=== PATIENT | male | born 1985 | race Caucasian/White ===

== ENCOUNTER 2020-12-23 12:14 | Emergency (ER) | payer SELFPAY ==
[2020-12-23 12:25] VITALS: BP 140/88
--- NOTE | 2020-12-23 12:28 | ED Physician Documentation ---
History of Present Illness - Stated complaint Stated Complaint: COVID Test - Chief complaint Chief Complaint: Heent - History obtained from History obtained from: Patient - History of Present Illness Timing: Today Pain level max: 0 Pain level now: 0 - Additonal information Additional information: Patient is a 35-year-old male who states he was exposed to someone with Covid a few days ago and now has a scratchy throat. His work is requesting a Covid test before he can return to work. No fevers. Mild, dry cough, chronic and unchanged from his normal smoker's cough. He has not had his Covid vaccination. Review of Systems Ten Systems: 10 systems reviewed and negative Constitutional: denies: Fever, Chills Throat: denies: Sore throat Cardiac: denies: Chest pain / pressure, Palpitations Respiratory: denies: Dyspnea, Wheezing GI: denies: Vomiting, Diarrhea Musculoskeletal: denies: Neck pain, Back pain Neurologic: denies: Headache PD PAST MEDICAL HISTORY - Past Medical History Past Medical History: No - Allergies Allergies/Adverse Reactions: Allergies Allergy/AdvReac Type Severity Reaction Status Date / Time No Known Drug Allergies Allergy Verified 12/23/20 12:19 - Living Situation Living Arrangement: reports: At home - Social History Does the pt smoke?: Yes Smoking Status: Current every day smoker - Family History Family history: reports: Non contributory PD ED PE NORMAL - Vitals Vital signs reviewed: Yes - General General: Alert and oriented X 3, No acute distress - HEENT HEENT: PERRL, Pharynx benign - Neck Neck: Supple, no meningeal sign - Cardiac Cardiac: RRR, Strong equal pulses - Respiratory Respiratory: No respiratory distress, Clear bilaterally - Abdomen Abdomen: Soft, Non tender, Non distended - Derm Derm: Warm and dry, No rash - Neuro Neuro: Alert and oriented X 3 - Psych Psych: Normal mood, Normal affect Results - Vitals Vitals: Vital Signs - 24 hr 12/23/20 12:20 Temperature 36.8 C Heart Rate 78 Respiratory 16 Rate Blood Pressure 140/88 H O2 Saturation 96 PD MEDICAL DECISION MAKING - ED course Complexity details: considered differential, d/w patient ED course: Covid test performed. Patient is relatively asymptomatic here. No hypoxia. No shortness of breath. No respiratory distress. Patient counseled regarding signs and symptoms for which I believe and urgent re-evaluation would be necessary. Patient with good understanding of and agreement to plan and is comfortable going home at this time This document was made in part using voice recognition software. While efforts are made to proofread this document, sound alike and grammatical errors may occur. Departure - Departure Disposition: 01 Home, Self Care Clinical Impression: Viral URI Condition: Good Instructions: COVID-19 [facility], COVID-19 [facility] Department Statement Follow-Up: Your,doctor in 1 week [Other] Comments: You have a Covid test pending. You need to self quarantine until the result is done and negative. Do not leave your house. Do not get near anybody. The results should be done in 48 to 72 hours. We will call with a positive result, the fastest way to get a negative result for confirmation though is to go to the hospital website at [email or web address], click on the my [facility] tab and sign up for the patient portal. If any friends or family get sick and would like to have a Covid test done, but do not have signs or symptoms that would necessitate being hospitalized, we encourage testing through our coronavirus swabbing station, call [phone] to schedule an appointment.
== END 2020-12-23 12:45 | disposition home or self-care (01) ==
LOC: ED 12:14
DX: Z20.822 Contact with and (suspected) exposure to COVID-19 (principal); J06.9 Acute upper respiratory infection, unspecified; F17.200 Nicotine dependence, unspecified, uncomplicated
CPT/HCPCS: 99282; 99283

== ENCOUNTER 2025-03-08 10:17 | Observation (INO) ==
[2025-03-08 11:16] LABS: HCT - HEMATOCRIT 48.2 % (42.0-52.0); HGB - HEMOGLOBIN 16.0 g/dL (14.0-18.0); MEAN PLATELET VOLUME 10.0 fL (7.4-11.4); NRBC ABSOLUTE COUNT (AUTO) 0.00 x10^3/uL; NUCLEATED RED BLOOD CELLS AUTO 0.0 /100WBC; PLT - PLATELET COUNT 319 10^3/uL (130-450); RED CELL DISTRIBUTION WIDTH 14.2 % (12.0-15.0)
--- NOTE | 2025-03-08 11:18 | ED Physician Documentation ---
History of Present Illness Stated complaint Stated Complaint: ABD PX,N/V Chief complaint Chief Complaint: Abd Pain History obtained from History obtained from: Patient History of Present Illness Timing: Prior to arrival Additonal information Additional information: Patient 40-year-old male presenting to the emergency department generalized abdominal pain nausea vomiting diarrhea that started on Wednesday he reports severe abdominal pain decreased eating and drinking secondary to pain. He is a regular alcohol drinker but notes he has been able to drink the last few days and denies any withdrawal symptoms. He notes recent move from [place] to [place] within the last week. He denies any recent antibiotic use. He denies any black stools but does report occasional streaks of blood in his stools and emesis. He denies any chest pain or shortness of breath. Abdomen does not feel bloated the patient to patient no history of abdominal surgeries. He has not take any medications regularly at home. No recent alcohol use Meds/Allgy Home Medications Ambulatory Orders Medication Instructions Recorded Confirmed No Known Home Medications 03/08/2508/01 Allergies Allergies Allergy/AdvReac Type Severity Reaction Status Date / Time No Known Drug Allergies Allergy Verified 03/08/25 10:39 PFSH Active Problems All Active Problems (Updated 03/08/25 @ 13:30 by Deedee Bettencourt PA-C) Acute duodenitis (Acute) Acute pancreatitis (Acute) Abdominal pain (Acute) Vomiting (Acute) Medical History Medical History (Updated 03/08/25 @ 13:30 by Deedee Bettencourt PA-C) No pertinent past medical history Social History Social History Living arrangement: At home Do you feel safe in your home environment?: Yes History of physical, verbal, emotional, or financial abuse?: No POLST Patient has POLST: No Exam Exam Vital Signs: Vital Signs x48h Temp Pulse Resp BP Pulse Ox 03/08/25 12:40 60 17 154/87 H 99 03/08/25 11:41 52 L 18 100 03/08/25 11:38 63 19 155/96 H 94 03/08/25 10:39 36.5 C 56 L 18 118/61 99 Constitutional normal general appearance HENMT normocephalic and head/scalp atraumatic Eyes PERRL, EOMs intact bilaterally and conjunctivae normal Neck/C-Spine visual inspection normal Lymph no lymphadenopathy noted Respiratory breath sounds equal bilaterally, normal respiratory effort and clear to auscultation bilaterally Cardiovascular normal heart rate noted, regular rhythm noted and no gallop Gastrointestinal Generalized abdominal tenderness but does appear more present in the epigastric region he has generalized guarding on examination but negative Rovsing sign and Huston sign. Active bowel sounds appreciated. Skin skin color normal Results Vitals Vitals: Vital Signs - 24 hr 03/08/25 10:39 03/08/25 11:33 03/08/25 11:38 Temperature 36.5 C Temperature Source Oral Pulse Rate 56 L 63 Respiratory Rate 18 19 Blood Pressure 118/61 155/96 H O2 Saturation 99 94 O2 Source Room air Room air Pain Intensity 10 9 9 03/08/25 11:41 03/08/25 12:40 03/08/25 12:44 Temperature Temperature Source Pulse Rate 52 L 60 Respiratory Rate 18 17 Blood Pressure 154/87 H O2 Saturation 100 99 O2 Source Room air Room air Pain Intensity 8 4 6 03/08/25 12:49 03/08/25 13:38 03/08/25 13:38 Temperature Temperature Source Pulse Rate Respiratory Rate Blood Pressure O2 Saturation O2 Source Pain Intensity 9 8 8 Oxygen O2 Source Room air Labs Labs: Laboratory Tests 03/08/25 11:03 WBC 10.8 RBC 5.03 Hgb 16.0 Hct 48.2 MCV 95.8 H MCH 31.8 H MCHC 33.2 RDW 14.2 Plt Count 319 MPV 10.0 Neut # (Auto) 9.1 H Lymph # (Auto) 0.9 L Nye # (Auto) 0.6 Eos # (Auto) 0.0 Baso # (Auto) 0.1 Absolute Nucleated RBC 0.00 Nucleated RBC % 0.0 Sodium 136 Potassium 4.4 Chloride 99 L Carbon Dioxide 31 Anion Gap 6.0 BUN 6 Creatinine 0.7 Estimated GFR (MDRD) 126 Glucose 131 H Calcium 9.7 Total Bilirubin 1.1 H AST 86 H ALT 35 Alkaline Phosphatase 73 Total Protein 8.1 Albumin 4.6 Globulin 3.5 Albumin/Globulin Ratio 1.3 Triglycerides 103 Lipase 5359 H PD Medical Decision Making ED course Complexity details: reviewed old records and reviewed results ED course: Patient is a 40-year-old male presenting with abdominal pain nausea vomiting diarrhea symptoms have been going on since Wednesday. He notes symptoms came on suddenly. No fevers no no history of abdominal surgeries he describes pain is all over but on initial physical exam tender in epigastric region and CVA tenderness on exam vital stable here in the ED Labs here in the emergency department show no leukocytosis hemoglobin is stable CMP unremarkable but there is slight elevation in AST at 86 and ALT of [address] abdomen pelvis: Abnormal wall thickening can be seen involving the duodenum, with significant surrounding inflammatory change and mild free fluid. Differential diagnosis includes duodenitis.No free air is seen. No abscess collection is seen.No significant inflammatory change can be seen involving the pancreas.Multiple hyperdense nodules are seen involving the kidneys. These may be related to hemorrhagic cysts. However, please consider a follow-up renal ultrasound for further evaluation. Pulmonary nodules can be seen at the lung bases, measuring up to 7 mm. * Please consider a follow-up dedicated chest CT for further evaluation. Patient's pain under control with morphine or Dilaudid dosing here in the ED. He continues to hold his stomach and laying in bed with pain he does not want a p.o. challenge. CT scan was more concerning for duodenitis and I did give him a dose of pantoprazole but had no change in his pain. He has no persistent vomiting but does report some nausea. His vitals remained stable here in the ED I reviewed with patient concerning findings for possible pancreatitis given upper abdominal pain nausea vomiting and alcohol use. He would like to stay overnight as his pain is not controlled and he does not feel well enough to go home or to follow a clear liquid diet at home as he feels he cannot eat or drink at this time. I reached out to [facility] physician health education assistant hospitalist who accepts patient at this time. We are currently pending urine analysis for concerns for hemorrhagic cysts on ct scan, but patient is not aware of any urinary changes or blood in his urine. However he did appear to have some CVA tenderness on initial physical exam. Patient agreeable to admission at this time Discharge Plan Discharge Patient Disposition: 66 [facility] DC/Xfer Condition: Good Clinical Impression: Vomiting, Abdominal pain, Acute pancreatitis, Acute duodenitis Prescriptions: No Action No Known Home Medications Print Language: Maldivian
[2025-03-08] MEDS: SODIUM CHLORIDE 0.9% 1,000 ML IV STA (11:20)
[2025-03-08] MEDS: ONDANSETRON 4 MG/2 ML VIAL IVP STA (11:32)
[2025-03-08] MEDS: MORPHINE 2 MG/ML CARPUJECT IVP STA (11:33)
[2025-03-08 11:35] LABS: ALT ALANINE AMINOTRANSFERASE 35.0 IU/L (10-60); AST ASPARTATE AMINOTRANSFERASE 86.0 IU/L (10-42); BUN - BLOOD UREA NITROGEN 6.0 mg/dL (6-20); CARBON DIOXIDE - CO2 31.0 mmol/L (21-32); CREATININE 0.7 mg/dL (0.6-1.3); GFR - MDRD 126.0 (>89)
--- NOTE | 2025-03-08 12:33 | CT Report ---
PROCEDURE: CT Abdomen/Pelvis W INDICATIONS: epigastric pain CONTRAST: 100ml omni 300 TECHNIQUE: After the administration of intravenous contrast, a CT scan of the abdomen and pelvis was performed. Images were recorded and evaluated at appropriate window settings. Reformats: coronal and sagittal. For radiation dose reduction, the following was used: automated exposure control, adjustment of mA and/or kV according to patient size. COMPARISON: None. FINDINGS: Image quality: Diagnostic. Lower chest: Pulmonary nodules can be seen in the lung bases, measuring up to 7 mm on the right on series 8 image 69 and measuring 5 mm on the left on series 8 image 48. Liver: No solid mass. Diffuse fatty liver infiltration can be seen. Gallbladder: Removed. Biliary tree: No intrahepatic or extrahepatic dilation, accounting for age. Spleen: No splenomegaly. Pancreas: No pancreatic ductal dilation. No significant surrounding inflammatory change can be seen. Adrenals: No adrenal nodule. Kidneys and ureters: No hydronephrosis. Along the posterior aspect of the left kidney, there is an exophytic nodule seen that measures 75 Konsyl units and measures 9 mm. At the superior pole of the left kidney, there is an additional nodule seen that measures 13 mm and 85 Hounsfield units. Differential diagnosis includes an accessory splenule. Along the medial aspect of the left kidney, there is an additional hyperdense nodule measuring 62 Hounsfield units and 13 mm. Additional smaller hyperdense nodules can be seen involving both kidneys. Stomach, bowel and peritoneum: Abnormal wall thickening can be seen in the duodenum, with significant surrounding inflammatory change, with mild free fluid. No free air is seen. No adjacent abscess collection is seen. The stomach demonstrates no significant abnormality. No dilated loops of small bowel are seen. The colon is relatively decompressed. Lymph nodes: No central or retroperitoneal adenopathy. Vessels: No infrarenal aortic aneurysm. Patent portal vein. PELVIS Reproductive organs: Unremarkable. Bladder: No abnormal wall thickening. Pelvic lymph nodes: No pelvic adenopathy by size criteria. Bones: No aggressive osseous abnormality. Other: Bilateral fat-containing inguinal hernias are seen. IMPRESSION: Abnormal wall thickening can be seen involving the duodenum, with significant surrounding inflammatory change and mild free fluid. Differential diagnosis includes duodenitis. No free air is seen. No abscess collection is seen. No significant inflammatory change can be seen involving the pancreas. Multiple hyperdense nodules are seen involving the kidneys. These may be related to hemorrhagic cysts. However, please consider a follow-up renal ultrasound for further evaluation. Pulmonary nodules can be seen at the lung bases, measuring up to 7 mm. * Please consider a follow-up dedicated chest CT for further evaluation. Reviewed by: Chris Houston MD on 03/08/2025 11:29 AM PREETI Approved by: Chris Houston MD on 03/08/2025 11:29 AM KYMARCELA Station ID: [id number]
[2025-03-08] MEDS: HYDROmorphone 0.5 MG/0.5 ML SYRINGE IVP STA ×2 (12:49→13:38)
[2025-03-08] MEDS: PANTOPRAZOLE 40 MG VIAL IVP STA (12:51)
[2025-03-08 13:52] LABS: GLUCOSE, URINE (UA) NEGATIVE (NEGATIVE); KETONES,URINE (UA) 40 mg/dL (NEGATIVE); OCCULT BLOOD,URINE NEGATIVE (NEGATIVE)
[2025-03-08] MEDS ORDERED: SODIUM CHLORIDE FLUSH 0.9% 10 ML SYRINGE IVP PRN (14:41)
--- NOTE | 2025-03-08 14:46 | HISTORY & PHYSICAL EXAMINATION ---
Chief Complaint Chief Complaint Chief Complaint: abdominal pain History of Present Illness Admitted From Admitted From:: home History Obtained From Records Reviewed: none available History obtained from: Patient History of Present Illness HPI Comment/Other: 40M with history of alcohol dependence, s/p cholecystectomy presents to the ED with abdominal pain, nausea and vomiting for 4 days. he drinks 2-3 beers daily. has been drinking since the age of 6, went to rehab for alcohol and was abstinent from [id number]. Denies any history of pancreatitis. has had severe epigastric and generalized abdominal pain wth n/v for 4 days. cannot eat. Tried to eat yesterday, a bulgarian dog and clam chowder- vomited and had worse pain. admits to "cold chills" for 4-5 hours this AM. last drink was yesterday, drinks 2-3 beers a day. has not had issues with alcohol withdrawal since he stopped drinking hard alcohol years ago. States stools have been normal for him, loose. has occasional BRBPR, none lately, and loose stools since cholecystectomy >20 years ago. CODE STATUS: Full code. Surrogate medical decision maker: sister Danyelle Ash. Social history: patient normally works as a cook. Recently moved back to the [place] from [place]. He is between jobs now and basically homeless has been staying with friends. Smokes he says less than a pack per day does not use marijuana or other drugs. Drinks 2-3 beers a day. Started drinking at the age of 6. His father was an alcoholic who of cirrhosis and throat cancer. As a child he would sneak sips of beer from his fathers open beers. Meds/Allgy Home Medications Ambulatory Orders Medication Instructions Recorded Confirmed No Known Home Medications 03/08/2508/01 Allergies Allergies Allergy/AdvReac Type Severity Reaction Status Date / Time No Known Drug Allergies Allergy Verified 03/08/25 10:39 PFSH Active Problems All Active Problems (Updated 03/08/25 @ 15:49 by MIKEY Brennan) Encounter for screening involving social determinants of health (SDoH) (Acute) Alcohol abuse (Acute) Acute duodenitis (Acute) Acute pancreatitis (Acute) Abdominal pain (Acute) Vomiting (Acute) Medical History Medical History (Updated 03/08/25 @ 15:49 by MIKEY Brennan) No pertinent past medical history Surgical History Surgical History (Updated 03/08/25 @ 15:16 by MIKEY Brennan) Status post cholecystectomy Social History Social History (Updated 03/08/25 @ 15:19 by MIKEY Brennan) Smoking Status: Current every day smoker Do you vape?: No Living arrangement: Homeless Living Condition: Alone Support Person: No Living Situation Details: homeless currently, staying with friends Has a Durable Power of Operating System Programmer for Health Care?: No Do you feel safe in your home environment?: Yes History of physical, verbal, emotional, or financial abuse?: No ETOH Use: Beer Frequency: Daily Number of drinks/day: 3 ETOH - Additional Notes: abstinent [id number] Substance Use: denies use POLST Patient has POLST: No Review of Systems Status of ROS: See HPI Constitutional Reports: Diaphoresis Cardiovascular Denies: palpitations, edema or shortness of breath with exertion Respiratory Denies: Shortness of breath Gastrointestinal Reports: Abdominal pain, Abdominal distention, Nausea, Vomiting, Poor appetite and Blood in stool (not currently); Denies: Melena Musculoskeletal Reports: Back pain (chronic) Integumentary/Breast Reports: Other (chronic erythema of facial skin without rash. ) Prior Level of Functionality: meets own needs, struggling with homelessness. Exam Exam Vital Signs: Vital Signs x48h Temp Pulse Pulse Resp BP BP Pulse Ox 03/08/25 14:46 36.7 C 52 L 18 143/93 H 98 03/08/25 14:20 57 L 17 114/83 100 03/08/25 12:40 60 17 154/87 H 99 03/08/25 11:41 52 L 18 100 03/08/25 11:38 63 19 155/96 H 94 03/08/25 10:39 36.5 C 56 L 18 118/61 99 Constitutional normal general appearance and no apparent distress HENMT normocephalic Eyes conjunctivae normal and no scleral icterus Neck/C-Spine visual inspection normal and trachea midline Lymph no lymphadenopathy noted Chest inspection of chest normal and palpation of chest normal Respiratory breath sounds equal bilaterally, normal respiratory effort and clear to auscultation bilaterally Cardiovascular normal heart rate noted Gastrointestinal abdomen normal to inspection, no ascites and no hernia diffuse ttp, worse at epigastrium. Genitourinary no CVA tenderness Back/Pelvis spine normal to inspection Extremities normal to inspection Neurology land inspector II-XII intact Psychiatry mental status grossly normal, oriented x3, thought process normal, cooperative, affect normal and memory normal Skin generalized erythema of facial skin. Conclusion/Plan Problem List (1) Acute pancreatitis: Plan: 3 day history of abdominal pain and inability to tolerate po intake. history of problematic alcohol consumption, family history of addiction (father was an alcoholic and mother is a methamphetamine addict). he has elevated lipase, no inflammatory changes seen at the pancreas on imaging. He has tenderness at the epigastrium. The etiology of his pancreatitis is likely alcohol. He does appear to consume a high fat diet. I have ordered a lipid panel to check triglycerides in the AM. likely not biliary pancreatitis, as he is s/p cholecystectomy. he has an Etoh level at the time of admit of <10 I have placed him on a clear liquid diet and given him supplemental IVF. I will treat his pain with po and IV pain medications. indicators for discharge will be pain that is lessening and ability to tolerate a diet. Discussed with Deedee Bettencourt PA-C in the emergency department decision was made to admit this patient for acute pancreatitis, likely alcoholic due to his inability to tolerate a diet and uncontrolled pain. I will admit him to observation status. (2) Acute duodenitis: Plan: and inflammation on his CT, the inflammation is read as periduodenal, with a mild amount of free fluid, no air, no abscess. he has not been having melena. I will watch his hemoglobin, have asked RN to test for occult blood at stools, and have presribed a PPI BID. I expect his hemoglobin to drop slightly, as he likely presents in a state of dehydration- he has ketonuria. Should he begin to have melena or significant drop in Hgb, would consider GS consult for consideration of endoscopy. (3) Alcohol abuse: Plan: denies withdrawal recently- did experience in the distant past. last drink was yesterday. he does not appear tremulous or agitated now. I will continue to observe. I suggested to the patient that he likely needs to stop alcohol consumption. He has an almost lifelong history of alcohol use, and addiction does run in his family. has had a brief period of sobriety several years ago. Will engage social work for discussion of alcohol cessation (4) Encounter for screening involving social determinants of health (SDoH): Plan: This patient is experiencing homelessness. he came here from [place] because he usually can establish himself easily here in this community, and things were not going well for him where he was living. Social work consult for resources. Plan I have spent 80 minutes in the care of this patient today. This includes time [id number], review and ordering of diagnostic imaging and laboratory studies and consultation with other providers. Monitoring the patient's signs symptoms, evaluation of medication effectiveness and patient's response to treatment. Lab Results Lab results reviewed: Yes 03/08/25 11:03 03/08/25 11:03 Diagnostic Imaging Results Diagnostic Imaging Results: positive Final report reviewed Diagnostic Imaging Results Comments: Images reviewed Core Measures Anticipated LOS I expect patient to be DC'd or transferred within 96 hours.: Yes DVT/VTE - Prophylaxis VTE/DVT Device ordered at admit?: Yes VTE/DVT Prophylaxis med ordered at admit?: Yes
--- NOTE | 2025-03-08 15:17 | PHARMACY PROGRESS NOTE ---
Best Possible Medication History Admit Date and Time: 03/08/25 1418 Home Medications Medication Instructions Recorded Confirmed Type No Known Home Medications 03/08/2508/01 History Processed by: Pharmacy Medications reviewed in ED?: No Medication History completed: Yes Patient Interview: Completed Secondary Source(s): Insurance records [facility] Statement: As the person ultimately responsible for medication therapy, providers are able to order a medication from an existing home medication list in [facility] via the "Reconcile Routine" prior to Confirmation of that medication by technology support analyst. Such practice is discouraged except when the physician, in their clinical judgment, deems that a medical need exists for a medication without regard to previous use.
[2025-03-08] MEDS: NICOTINE 21 MG PATCH TOP SCH (16:27)
[2025-03-08] MEDS: LACTATED RINGERS 1,000 ML IV SCH (16:28)
[2025-03-08] MEDS: HYDROmorphone 0.5 MG/0.5 ML SYRINGE IVP PRN (16:28)
[2025-03-08] MEDS: SODIUM CHLORIDE FLUSH 0.9% 10 ML SYRINGE IVP SCH (16:29)
[2025-03-08] MEDS: ONDANSETRON 4 MG/2 ML VIAL IVP PRN (19:06)
[2025-03-08] MEDS: PANTOPRAZOLE 40 MG VIAL IVP SCH (20:21)
[2025-03-09] MEDS: oxyCODONE 5 MG TABLET PO PRN (01:04)
[2025-03-09] MEDS: ACETAMINOPHEN 325 MG TABLET PO PRN (02:54)
[2025-03-09 05:56] LABS: HCT - HEMATOCRIT 44.4 % (42.0-52.0); HGB - HEMOGLOBIN 14.8 g/dL (14.0-18.0); MEAN PLATELET VOLUME 10.4 fL (7.4-11.4); NRBC ABSOLUTE COUNT (AUTO) 0.00 x10^3/uL; NUCLEATED RED BLOOD CELLS AUTO 0.0 /100WBC; PLT - PLATELET COUNT 279 10^3/uL (130-450); RED CELL DISTRIBUTION WIDTH 14.3 % (12.0-15.0)
[2025-03-09 06:16] LABS: CHOL/HDL RATIO 5.5 (<5.0); LDL/HDL RATIO 3.8 (<3.6); VLDL CHOLESTEROL 22 mg/dL
[2025-03-09 06:17] LABS: BUN - BLOOD UREA NITROGEN 5.0 mg/dL (6-20); CARBON DIOXIDE - CO2 28.0 mmol/L (21-32); CREATININE 0.7 mg/dL (0.6-1.3); GFR - MDRD 126.0 (>89)
[2025-03-09] MEDS: ENOXAPARIN 40 MG/0.4 ML SYRINGE SUBQ SCH (08:31)
[2025-03-09 09:10] LABS: ESTIMATED AVERAGE GLUCOSE 111 mg/dL (70-100); HEMOGLOBIN A1c% 5.5 % (4.27-6.07)
--- NOTE | 2025-03-09 14:19 | PROVIDER PROGRESS NOTE ---
Subjective Prog Note Date Prog Note Date: 03/09/25 Subjective Subjective: subjectively he does not note an improvement in his pain today. He has taken 6 doses of IVP dilaudid since admit and 2 doses of po oxycodone. He has not tolerated clears at breakfast (vomited), but has expressed desire to RN to eat a more substantial diet. He denies any anxiety, tremors headaches or restlessness. I warned him once again about alcohol withdrawal, and he does not think this will be a problem. Current Medications Current Medications Current Medications: Current Medications Generic Name Dose Route Start Last Admin Trade Name Freq PRN Reason Stop Dose Admin Acetaminophen 650 mg 03/08/25 14:41 03/09/25 02:54 Acetaminophen 325 Mg Tablet PO 650 mg Q4HR PRN Administration Pain 1 to 4, or Fever Enoxaparin Sodium 40 mg 03/09/25 09:00 03/09/25 08:31 Enoxaparin 40 Mg/0.4 Ml Syringe SUBQ 40 mg DAILY JAQUELINE Administration Hydromorphone HCl 0.5 mg 03/08/25 14:41 03/09/25 13:53 Hydromorphone 0.5 Mg/0.5 Ml Syringe IVP 0.5 mg Q2H PRN Administration Pain 8 to 10 Lactated Ringer's 1,000 mls @ 125 mls/hr 03/08/25 15:00 03/09/25 07:37 Lr IV 125 mls/hr .Q8H JAQUELINE Administration Nicotine 1 patch 03/08/25 15:11 03/09/25 08:38 Nicotine 21 Mg Patch TOP 1 patch DAILY JAQUELINE Administration Ondansetron HCl 4 mg 03/08/25 14:41 03/09/25 00:05 Ondansetron 4 Mg/2 Ml Vial IVP 4 mg Q6HR PRN Administration Nausea / Vomiting Oxycodone HCl 5 mg 03/08/25 14:41 03/09/25 05:18 Oxycodone 5 Mg Tablet PO 5 mg Q4HR PRN Administration Pain 5 to 7 Pantoprazole Sodium 40 mg 03/08/25 21:00 03/09/25 08:35 Pantoprazole 40 Mg Vial IVP 40 mg BID JAQUELINE Administration Multivit/Folic Acid/Iron 1 tab 03/10/25 08:00 Vitamin Tablet PO DAILYWM JAQUELINE Sodium Chloride 10 ml 03/08/25 14:41 Sodium Chloride Flush 0.9% 10 Ml Syringe IVP PRN PRN NEEDED PER PROVIDER ORDERS Sodium Chloride 10 ml 03/08/25 17:00 03/09/25 10:35 Sodium Chloride Flush 0.9% 10 Ml Syringe IVP Not Given 0100,0900,1700 [facility] Thiamine HCl 100 mg 03/10/25 09:00 Thiamine 100 Mg Tablet PO DAILY JAQUELINE Objective Vital Signs/Intake & Output Reviewed Vital Signs: Yes Vital Signs: Vital Signs x48h Temp Pulse Resp BP Pulse Ox 03/09/25 13:14 36.5 C 57 L 16 131/85 H 97 03/09/25 09:20 36.7 C 58 L 12 111/71 94 Intake & Output: Intake & Output 03/06/25 03/07/25 03/08/25 03/09/25 23:59 23:59 23:59 23:59 Intake Total 2713 / 2713 2381 / 2381 Output Total 600 / 600 100 / 100 Balance 2113 / 2113 2281 / 2281 Weight (kg) 92 kg Objective General Appearance: positive No acute distress and Alert Eyes Bilateral: positive Conjunctivae nml Neck: positive Nml inspection Respiratory: positive No respiratory distress and Breath sounds nml Cardiovascular: positive Regular rate & rhythm Abdomen: positive Tenderness (epigastrium, LUQ, moderate) Skin: positive No rash Neurologic/Psychiatric: positive Oriented x3 Lab Results 03/09/25 05:09 03/09/25 05:09 Other Labs: Lab Results x24hrs 03/09/25 Range/Units 05:09 WBC 9.5 (4.8-10.8) x10^3/uL RBC 4.59 L (4.70-6.10) 10^6/uL Hgb 14.8 (14.0-18.0) g/dL Hct 44.4 (42.0-52.0) % MCV 96.7 H (80.0-94.0) fL MCH 32.2 H (27.0-31.0) pg MCHC 33.3 (32.0-36.0) g/dL RDW 14.3 (12.0-15.0) % Plt Count 279 (130-450) 10^3/uL MPV 10.4 (7.4-11.4) fL Neut # (Auto) 7.4 H (1.5-6.6) 10^3/uL Lymph # (Auto) 1.3 L (1.5-3.5) 10^3/uL [place] # (Auto) 0.8 (0.0-1.0) 10^3/uL Eos # (Auto) 0.1 (0.0-0.7) 10^3/uL Baso # (Auto) 0.0 (0.0-0.1) 10^3/uL Absolute Nucleated RBC 0.00 x10^3/uL Nucleated RBC % 0.0 /100WBC Sodium 134 L (135-145) mmol/L Potassium 3.6 (3.5-4.5) mmol/L Chloride 98 L (101-111) mmol/L Carbon Dioxide 28 (21-32) mmol/L Anion Gap 8.0 (6-13) BUN 5 L (6-20) mg/dL Creatinine 0.7 (0.6-1.3) mg/dL Estimated GFR (MDRD) 126 (>89) Glucose 97 (74-104) mg/dL Estimat Average Glucose 111 H (70-100) mg/dL Hemoglobin A1c % 5.5 (4.27-6.07) % Calcium 8.9 (8.5-10.3) mg/dL Lactate Dehydrogenase 151 (140-271) IU/L Triglycerides 108 mg/dL Cholesterol 170 ( - 200) mg/dL LDL Cholesterol, Calc 117 ( - 129) mg/dL VLDL Cholesterol 22 mg/dL HDL Cholesterol 31 L (60 - ) mg/dL LDL/HDL Ratio 3.8 (<3.6) Cholesterol/HDL Ratio 5.5 (<5.0) Assessment/Plan Problem List (1) Acute pancreatitis: Impression: 3 day history of abdominal pain and inability to tolerate po intake. history of problematic alcohol consumption, family history of addiction (father was an alcoholic and mother is a methamphetamine addict). he has elevated lipase, no inflammatory changes seen at the pancreas on imaging. He has tenderness at the epigastrium. The etiology of his pancreatitis is likely alcohol. He does appear to consume a high fat diet. Lipid panel not remarkable for elevated triglycerides, likely not biliary pancreatitis, as he is s/p cholecystectomy. He is not tolerating clears, but RN notes that he does not take sips and proceed cautiously- he has been drinking about 120 ml in 2 gulps, then vomits. he has been urged to take small sips . indicators for discharge will be pain that is lessening and ability to tolerate a diet. 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 Continues to require significant analgesia (He has taken 6 doses of IVP dilaudid since admit and 2 doses of po oxycodone.) (2) Acute duodenitis: Impression: No melena or bloody stools. H/H shows the expected drop with hydration of this patient. I will continue him on BID PPI, and discharge him to outpatient followup. the inflammation on CT is read as periduodenal, with a mild amount of free fluid, no air, no abscess. he has not been having melena. I will watch his hemoglobin, the drop is as expected with hydration, have asked RN to test for occult blood at stools, and have prescribed a PPI BID. . Should he begin to have melena or significant drop in Hgb, would consider GS consult for consideration of endoscopy. (3) Alcohol abuse: Impression: He does not seem to connect his drinking with his pancreatitis. Thinks that maybe he got a bad batch of beer, but does not see the alcohol as the toxin that is causing his problem. Will continue to encourage alcohol cessation. (4) Encounter for screening involving social determinants of health (SDoH): Impression: Patient is currently homeless. I have asked for social work assistance in helping him w substance abuse and housing resources. I have spent 38 minutes in the care of this patient today. This includes time [id number], review and ordering of diagnostic imaging and laboratory studies. Monitoring the patient's signs symptoms, evaluation of medication effectiveness and patient's response to treatment.
--- NOTE | 2025-03-09 20:27 | Discharge Summary ---
Discharge Summary Admit Date: 03/08/25 Discharge Date: 03/10/25 Discharging Provider: Ashley Delvalle PA-C Primary Care Provider: none Code Status: Attempt Resuscitation DIAGNOSES Discharge Diagnoses with Status of Each Condition: Acute pancreatitis, resolving Acute duodenitis, resolving Alcohol abuse, chronic. Encounter for screening involving social determinants of health. HPI History of Present Illness: 40M with history of alcohol dependence, s/p cholecystectomy presents to the ED with abdominal pain, nausea and vomiting for 4 days. he drinks 2-3 beers daily. has been drinking since the age of 6, went to rehab for alcohol and was abstinent from [id number]. Denies any history of pancreatitis. has had severe epigastric and generalized abdominal pain wth n/v for 4 days. cannot eat. Tried to eat yesterday, a amharic dog and clam chowder- vomited and had worse pain. admits to "cold chills" for 4-5 hours this AM. last drink was yesterday, drinks 2-3 beers a day. has not had issues with alcohol withdrawal since he stopped drinking hard alcohol years ago. States stools have been normal for him, loose. has occasional BRBPR, none lately, and loose stools since cholecystectomy >20 years ago. CODE STATUS: Full code. Surrogate medical decision maker: sister Danyelle Ash. Social history: patient normally works as a cook. Recently moved back to the [place]. He is between jobs now and basically homeless has been staying with friends. Smokes he says less than a pack per day does not use marijuana or other drugs. Drinks 2-3 beers a day. Started drinking at the age of 6. His father was an alcoholic who of cirrhosis and throat cancer. As a child he would sneak sips of beer from his fathers open beers. CONSULTS | PROCEDURES Procedures: CT abdomen pelvis: Abnormal wall thickening seen in the duodenum with significant inflammatory changes and mild free fluid. No free air. No abscess. There is no significant inflammatory change seen involving the pancreas. Hyperdense nodules involving the kidneys, patient should have follow-up renal ultrasound. Pulmonary nodules at the lung bases, patient should have follow-up chest CT. HOSPITAL COURSE Hospital Course: 40M with history of alcoholism, presents w abdominal pain due to duodenitis and pancreatitis. He was hospitalized for pain control and fluid resuscitation. His pain improved by the evening of hospital day 2, and he requested discharge, but agreed to stay overnight for further monitoring and pain control. At his request, he was discharged on the AM of HD #3 in stable condition. He has incidental findings on CT that will need followup. our social workers were able to obtain health insurance for him and he was given resources to obtain primary care. He was discharged with pain medication and PPI treatment. He was encouraged towards alcohol abstinence, and referred to [facility] for case management as he is currently unhoused. ALLERGIES Allergies Allergy/AdvReac Type Severity Reaction Status Date / Time No Known Drug Allergies Allergy Verified 03/08/25 10:39 MEDICATIONS Ambulatory Orders Medication Instructions Recorded Confirmed oxycodone 5 mg tablet 5 mg PO Q4HR PRN Pain 5 to 7 #10 03/09/25 tabs pantoprazole 40 mg tablet,delayed 40 mg PO BID #60 tab s 03/09/25 release (Protonix) vit,calcium 27-ferrous 1 tab PO DAILYWM #30 t abs 03/09/25 fum 60 mg iron-folic acid 1 mg tablet (Trinatal Rx 1) thiamine mononitrate (vit B1) 100 100 mg PO DAILY #30 tabs 03/09/25 mg tablet (Vitamin B-1 (mononitrate)) PHYSICAL EXAM AT DISCHARGE Vital Signs: Vital Signs x48h Temp Pulse Resp BP Pulse Ox 03/10/25 08:15 36.6 C 66 18 149/98 H 99 03/10/25 04:42 36.8 C 50 L 18 124/69 97 Physical Exam Other/Comments: General Appearance: positive No acute distress and Alert Eyes Bilateral: positive Conjunctivae nml Neck: positive Nml inspection Respiratory: positive No respiratory distress and Breath sounds nml Cardiovascular: positive Regular rate & rhythm Abdomen: positive Tenderness (epigastrium, LUQ, moderate) Skin: positive No rash Neurologic/Psychiatric: positive Oriented x3 LABS 03/10/25 05:29 03/10/25 05:29 Other Lab Results: Laboratory Tests 03/08/25 03/09/25 03/10/25 11:03 05:09 05:29 Hgb 16.0 14.8 13.4 L This drop in hemoglobin is likely dilutional FOLLOW UP Follow Up: PCP list given to this patient. needs followup imaging of his chest and abdomen as above. TIME SPENT Time Spent in Discharge (Minutes): 35 Discharge Plan Discharge Patient Disposition: 01 Home, Self Care Condition: Good Prescriptions: New oxycodone 5 mg Tablet 5 mg PO Q4HR PRN (Reason: Pain 5 to 7) Qty: 10 0RF Trinatal Rx 1 60 mg iron-1 mg Tablet 1 tab PO DAILYWM Qty: 30 3RF thiamine mononitrate (vit B1) [Vitamin B-1 (mononitrate)] 100 mg Tablet 100 mg PO DAILY Qty: 30 3RF pantoprazole [Protonix] 40 mg tablet,delayed release (DR/EC) 40 mg PO BID Qty: 60 2RF Diet: Cardiac Interventions: Belongings Inventory Last Done: 03/09/25 10:00 Discharge Last Done: 03/10/25 09:05 Discharge Checklist - Nursing Last Done: 03/10/25 09:06 Discharge Vital Signs (30 Minutes) Last Done: 03/10/25 08:15 Health Concerns: You were admitted to the hospital for alcoholic pancreatitis. This happens sometimes when people drink alcohol their pancreas gets irritated even 2-3 beers a day can cause this problem. For this reason, I recommend that you avoid all alcohol forever. Once you have had this problem is very likely that you could have it again. When the pancreas becomes inflamed repeatedly it can stop functioning. This can cause you to become a diabetic. The other thing you can do to help your pancreas is adhere to a lower fat diet. Foods with lots of fat in them can also be irritating to the pancreas. Additionally you had some inflammation in your small intestine that we saw on the CT scan. For this reason I am putting you on a medicine called Protonix that you take twice a day. This will help calm the acid in your stomach and allow your small intestine to heal. This inflammation also could have been caused by alcohol. That is another good reason to stop drinking. While you have been in the hospital we have been able to get you Medicaid insurance. Hopefully that will help pay for the medications that you need. I have sent them into [employer]. Print Language: Tuvaluan Patient Instructions: Pancreatitis Acute Dc Vitals documented within 30 minutes of discharge?: Yes (Yes)
--- NOTE | 2025-03-09 20:36 | ADVANCE CARE PLANNING NOTE ---
Advance Care Planning Planning Encounter Date: 03/09/25 Purpose: This is a gentleman with very few connections in our community. I am concerned if a major event were to happen that he would not have adequate family contact information Parties in Attendance: Ashley Delvalle PA-C, Clifton Ash, patient. Decisional Capacity of the Patient: Alert oriented and decisional Diagnosis for Encounter (1) Acute pancreatitis: (2) Acute duodenitis: (3) Alcohol abuse: (4) Encounter for screening involving social determinants of health (SDoH): Encounter Subjective/Patient's Story: 40-year-old male who [place] periods [place]. He states that things always go pretty well for him when he comes here. Things have not gone well for him in [place] so he came back out here. He is looking for work right now but is almost homeless. He is essentially couch surfing. For an emergency contact he lists a friend. When I initially spoke with him on admission he states that if things really went badly he would want us to call his sister in [place] who works as a lab scientist. I want to be sure we have documentation in place to honor this request as this patient tends to have health habits that are not conducive to maintaining good health. Objective/Medical Story: Admitted for acute alcoholic pancreatitis with duodenitis. He has been accepting and compliant with care here. And he is starting to consider the merits of a sober lifestyle. He has been in recovery in the past from 2020- 2023. Since that time he feels that he has been able to keep his alcohol use under control and reports drinking 2-3 beers a day. He came in with severe abdominal pain and was diagnosed with acute alcoholic pancreatitis. His A1c is within normal limits his triglycerides are also within normal limits. He is status postcholecystectomy. Goals of Care: Full code full care was endorsed by the patient. Plan: Surrogate decision maker is his sister Danyelle Ash. [phone] He would also like his brother Keo Hannah listed on the chart. His phone number is [phone] Code Status: Attempt Resuscitation Time spent on advance care plannin
[2025-03-10 05:53] LABS: HCT - HEMATOCRIT 41.6 % (42.0-52.0); HGB - HEMOGLOBIN 13.4 g/dL (14.0-18.0); MEAN PLATELET VOLUME 10.2 fL (7.4-11.4); NRBC ABSOLUTE COUNT (AUTO) 0.00 x10^3/uL; NUCLEATED RED BLOOD CELLS AUTO 0.0 /100WBC; PLT - PLATELET COUNT 250 10^3/uL (130-450); RED CELL DISTRIBUTION WIDTH 14.0 % (12.0-15.0)
[2025-03-10 06:16] LABS: BUN - BLOOD UREA NITROGEN 5.0 mg/dL (6-20); CARBON DIOXIDE - CO2 34.0 mmol/L (21-32); CREATININE 0.7 mg/dL (0.6-1.3); GFR - MDRD 126.0 (>89)
[2025-03-10] MEDS: THIAMINE 100 MG TABLET PO SCH (08:14)
[2025-03-10] MEDS: PRENATAL VITAMIN TABLET PO SCH (08:14)
[2025-03-10 09:05] VITALS: BP 149/98; TEMP 97.9; O2SAT 99
--- OUTSIDE RECORDS SUMMARY | 2025-03-13 17:50 | EXTERNAL MEDICAL SUMMARY RPT | Continuity of Care Document ---
Author Organization [place] Address [address] [place] [phone] Phone Problems date description facility 2025-03-08 14:35 Acute pancreatitis w ithout necrosis or infection, unspecified [facility] 2025-03-08 16:41 Acute pancreatitis w ithout necrosis or infection, unspecified [facility] 2025-03-09 10:02 Alcohol abuse, uncomplicated [facility] 2025-03-09 10:02 [facility]odenitis without bleeding [facility] 2025-03-09 10:02 Acute pancreatitis w ithout necrosis or infection, unspecified [facility] 2025-03-09 10:02 Encounter for screening, unspec ified [facility] 2025-03-09 20:16 Alcohol abuse, uncomplicated [facility] 2025-03-09 20:16 [facility]odenitis without bleeding [facility] 2025-03-09 20:16 Acute pancreatitis w ithout necrosis or infection, unspecified [facility] 2025-03-09 20:16 Encounter for screening, unspec ified [facility] 2025-03-09 20:23 Alcohol abuse, uncomplicated [facility] 2025-03-09 20:23 [facility] without bleeding [facility] 2025-03-09 20:23 Acute pancreatitis w ithout necrosis or infection, unspecified [facility] 2025-03-09 20:23 Encounter for screening, unspec ified [facility] 2025-03-10 07:48 Alcohol abuse, uncomplicated [facility] 2025-03-10 07:48 [facility]itis without bleeding [facility] 2025-03-10 07:48 Acute pancreatitis w ithout necrosis or infection, unspecified [facility] 2025-03-10 07:48 Encounter for screening, unspec ified [facility] 2025-03-10 09:08 Alcohol abuse, uncomplicated [facility] 2025-03-10 09:08 Duodenitis without bleeding [facility] 2025-03-10 09:08 Acute pancreatitis w ithout necrosis or infection, unspecified [facility] 2025-03-10 09:08 Encounter for screening, unspec ified [facility] 2025-03-13 07:55 Alcohol abuse, uncomplicated [facility] 2025-03-13 07:55 [facility] 2025-03-13 07:55 Acute pancreatitis w ithout necrosis or infection, unspecified [facility] 2025-03-13 07:55 Generalized abdominal pain [facility] 2025-03-13 07:55 Nausea with vomiting, unspecifi ed [facility] 2025-03-13 07:55 Diarrhea, unspecified [facility] 2025-03-13 07:55 Encounter for screening, unspec ified [facility] Results/Labs test date facility value unit notes Result panel 1 ETOH - ETHANOL 2025-03-08 11:03 [facility] < 10.0 mg/dl Blood Alcohol Levels Level Sporadic Drinkers Chronic drinkers 100 mg/dL Legally intoxicated* Minimal signs 200-250 mg/dL Alertness lost, Effort needed to becoming lethargic maintain emotional and motor control 300-350 mg/dL Stupor to coma Drowsy and slow >500 mg/dL Possible Coma *The legal definition of intoxication varies. This assy is for medical decision making only. As of December 2022 testing method has changed, this may include reference ranges. NUCLEATED RED BLOOD CELLS AUTO 2025-03-08 11:03 [facility] 0.0 /100wbc (missing) EOSINOPHILS # (AUTO) 2025-03-08 11:03 [facility] 0.0 10 3/ul (missing) NRBC ABSOLUTE COUNT (AUTO) 2025-03-08 11:03 [facility] 0.00 x10 3/ul (missing) BASOPHILS # (AUTO) 2025-03-08 11:03 [facility] 0.1 10 3/ul (missing) MONOCYTES # (AUTO) 2025-03-08 11:03 [facility] 0.6 10 3/ul (missing) CREATININE 2025-03-08 11:03 [facility] 0.7 mg/dl As of December 2022 test ing method has changed, this may include reference ranges. LYMPHOCYTES # (AUTO) 2025-03-08 11:03 [facility] 0.9 10 3/ul (missing) BILIRUBIN,TOTAL 2025-03-08 11:03 [facility] 1.1 mg/dl As of December 2022 test ing method has changed, this may include reference ranges. ALBUMIN/GLOBULIN RATIO 2025-03-08 11:03 [facility] 1.3 (missing) (missing) MEAN PLATELET VOLUME 2025-03-08 11:03 [facility] 10.0 fl (missing) WHITE BLOOD COUNT 2025-03-08 11:03 [facility] 10.8 x10 3/ul (missing) TRIGLYCERIDES 2025-03-08 11:03 [facility] 103 mg/dl Triglyceride Risk Classification <150 mg/dL Normal 150-199 mg/dL Borderline High 200-499 mg/dL High >500 mg/dL Very High GFR - MDRD 2025-03-08 11:03 [facility] 126 (missing) The IDMS-traceable M DRD Study Equation has been validated extensively in and populations between the ages of 18 and 70 with impaired kidney function (eGFR < 60 mL/min/1.73m2) and has shown good performance for patients with all common causes of kidney disease. Although this equation has not been validated for patients older than 70, an MDRD-derived eGFR may still be a useful tool for providers caring for patients older than 70. References: http://www.nkdep.nih.gov /lab-evaluation/gfr/crea tinine-stand ardization, last updated August 2011. GLUCOSE 2025-03-08 11:03 [facility] 131 mg/dl As of December 2022 test ing method has changed, this may include reference ranges. SODIUM 2025-03-08 11:03 [facility] 136 mmol/l (missing) RED CELL DISTRIBUTION WIDTH 2025-03-08 11:03 [facility] 14.2 % (missing) HGB - HEMOGLOBIN 2025-03-08 11:03 [facility] 16.0 g/dl (missing) GLOBULIN 2025-03-08 11:03 [facility] 3.5 g/dl (missing) CARBON DIOXIDE - CO2 2025-03-08 11:03 [facility] 31 mmol/l As of December 2022 test ing method has changed, this may include reference ranges. MEAN CORPUSCULAR HEMOGLOBIN 2025-03-08 11:03 [facility] 31.8 pg (missing) PLT - PLATELET COUNT 2025-03-08 11:03 [facility] 319 10 3/ul (missing) MEAN CORPUSCULAR HGB CONC 2025-03-08 11:03 [facility] 33.2 g/dl (missing) ALT ALANINE AMINOTRANSFERASE 2025-03-08 11:03 [facility] 35 iu/l As of December 2022 test ing method has changed, this may include reference ranges. POTASSIUM 2025-03-08 11:03 [facility] 4.4 mmol/l As of December 2022 test ing method has changed, this may include reference ranges. ALBUMIN 2025-03-08 11:03 [facility] 4.6 g/dl As of December 2022 test ing method has changed, this may include reference ranges. HCT - HEMATOCRIT 2025-03-08 11:03 [facility] 48.2 % (missing) RED BLOOD COUNT 2025-03-08 11:03 [facility] 5.03 10 6/ul (missing) LIPASE 2025-03-08 11:03 [facility] 5359 u/l As of December 2022 test ing method has changed, this may include reference ranges. BUN - BLOOD UREA NITROGEN 2025-03-08 11:03 [facility] 6 mg/dl As of December 2022 test ing method has changed, this may include reference ranges. ANION GAP 2025-03-08 11:03 [facility] 6.0 (missing) (missing) ALKALINE PHOSPHATASE 2025-03-08 11:03 [facility] 73 iu/l As of December 2022 test ing method has changed, this may include reference ranges. TOTAL PROTEIN 2025-03-08 11:03 [facility] 8.1 g/dl As of December 2022 test ing method has changed, this may include reference ranges. AST ASPARTATE AMINOTRANSFERASE 2025-03-08 11:03 [facility] 86 iu/l As of December 2022 test ing method has changed, this may include reference ranges. NEUTROPHILS # (AUTO) 2025-03-08 11:03 [facility] 9.1 10 3/ul (missing) CALCIUM 2025-03-08 11:03 [facility] 9.7 mg/dl As of December 2022 test ing method has changed, this may include reference ranges. MEAN CORPUSCULAR VOLUME 2025-03-08 11:03 [facility] 95.8 fl (missing) CHLORIDE 2025-03-08 11:03 [facility] 99 mmol/l As of December 2022 test ing method has changed, this may include reference ranges. Result panel 2 UROBILINOGEN,URINE 2025-03-08 13:40 [facility] 0.2 (NORMAL) e.u./dl (missing) SPECIFIC GRAVITY,URINE 2025-03-08 13:40 [facility] 1.010 (missing) (missing) KETONES,URINE (UA) 2025-03-08 13:40 [facility] 40 mg/dl (missing) PH,URINE 2025-03-08 13:40 [facility] 6.0 ph (missing) CLARITY,URINE 2025-03-08 13:40 [facility] CLEAR (missing) (missing) LEUKOCYTE ESTERASE, URINE 2025-03-08 13:40 [facility] NEGATIVE (missing) (missing) NITRITE,URINE 2025-03-08 13:40 [facility] NEGATIVE (missing) (missing) OCCULT BLOOD,URINE 2025-03-08 13:40 [facility] NEGATIVE (missing) (missing) BILIRUBIN,URINE 2025-03-08 13:40 [facility] NEGATIVE (missing) Bilirubin can be influenced by color interference. Please correlate positive results with clinical presentation GLUCOSE, URINE (UA) 2025-03-08 13:40 [facility] NEGATIVE mg/dl (missing) PROTEIN,URINE 2025-03-08 13:40 [facility] NEGATIVE mg/dl (missing) UR CULTURE IF IND 2025-03-08 13:40 [facility] NOT INDICATED (missing) (missing) URINE MICROSCOPIC INDICATED? 2025-03-08 13:40 [facility] NOT INDICATED (missing) (missing) COLOR,URINE 2025-03-08 13:40 [facility] YELLOW (missing) URINE CLEAN CATCH Result panel 3 NUCLEATED RED BLOOD CELLS AUTO 2025-03-09 05:09 [facility] 0.0 /100wbc (missing) BASOPHILS # (AUTO) 2025-03-09 05:09 [facility] 0.0 10 3/ul (missing) NRBC ABSOLUTE COUNT (AUTO) 2025-03-09 05:09 [facility] 0.00 x10 3/ul (missing) EOSINOPHILS # (AUTO) 2025-03-09 05:09 [facility] 0.1 10 3/ul (missing) CREATININE 2025-03-09 05:09 [facility] 0.7 mg/dl As of December 2022 testing method has changed, this may include reference ranges. MONOCYTES # (AUTO) 2025-03-09 05:09 [facility] 0.8 10 3/ul (missing) LYMPHOCYTES # (AUTO) 2025-03-09 05:09 [facility] 1.3 10 3/ul (missing) MEAN PLATELET VOLUME 2025-03-09 05:09 [facility] 10.4 fl (missing) TRIGLYCERIDES 2025-03-09 05:09 [facility] 108 mg/dl No Triglyceride Risk Classification <150 mg/dL Normal 150-199 mg/dL Borderline High 200-499 mg/dL High >500 mg/dL Very High As of December 2022 testing method has changed, this may include reference ranges. ESTIMATED AVERAGE GLUCOSE 2025-03-09 05:09 [facility] 111 mg/dl (missing) LDL CHOLESTEROL,CALCULAT ED 2025-03-09 05:09 [facility] 117 mg/dl LDLD REFERENCE RANGE AND CARDIOVASCULAR RISK: <130 mg/dL Desirable 130-159 mg/dL Borderline High Risk >160 mg/dL High Risk GFR - MDRD 2025-03-09 05:09 [facility] 126 (missing) The IDMS-traceable MDRD Study Equation has been validated extensively in and populations between the ages of 18 and 70 with impaired kidney function (eGFR < 60 mL/min/1.73m2) and has shown good performance for patients with all common causes of kidney disease. Although this equation has not been validated for patients older than 70, an MDRD-derived eGFR may still be a useful tool for providers caring for patients older than 70. References: http://www.nkdep.nih .gov/lab-evaluation/ gfr/creatinine-stand ardization, last updated August 2011. SODIUM 2025-03-09 05:09 [facility] 134 mmol/l (missing) RED CELL DISTRIBUTION WIDTH 2025-03-09 05:09 [facility] 14.3 % (missing) HGB - HEMOGLOBIN 2025-03-09 05:09 [facility] 14.8 g/dl (missing) LDH - LACTATE DEHYDROGENASE 2025-03-09 05:09 [facility] 151 iu/l As of December 2022 testing method has changed, this may include reference ranges. CHOLESTEROL 2025-03-09 05:09 [facility] 170 mg/dl Total Cholesterol Risk Classification Cholesterol Level Risk Classification <200 mg/dL Desirable 200-239 mg/dL Borderline High >240 mg/dL High As of December 2022 testing method has changed, this may include reference ranges. VLDL CHOLESTEROL 2025-03-09 05:09 [facility] 22 mg/dl (missing) PLT - PLATELET COUNT 2025-03-09 05:09 [facility] 279 10 3/ul (missing) CARBON DIOXIDE - CO2 2025-03-09 05:09 [facility] 28 mmol/l As of December 2022 testing method has changed, this may include reference ranges. POTASSIUM 2025-03-09 05:09 [facility] 3.6 mmol/l As of December 2022 testing method has changed, this may include reference ranges. LDL/HDL RATIO 2025-03-09 05:09 [facility] 3.8 (missing) (missing) HDL CHOLESTEROL 2025-03-09 05:09 [facility] 31 mg/dl Coronary Heart Disease Risk Classification HDL Level Risk factor < 40 mg/dL major risk > 60 mg/dL negative risk As of December 2022 testing method has changed, this may include reference ranges. MEAN CORPUSCULAR HEMOGLOBIN 2025-03-09 05:09 [facility] 32.2 pg (missing) MEAN CORPUSCULAR HGB CONC 2025-03-09 05:09 [facility] 33.3 g/dl (missing) RED BLOOD COUNT 2025-03-09 05:09 [facility] 4.59 10 6/ul (missing) HCT - HEMATOCRIT 2025-03-09 05:09 [facility] 44.4 % (missing) BUN - BLOOD UREA NITROGEN 2025-03-09 05:09 [facility] 5 mg/dl As of December 2022 testing method has changed, this may include reference ranges. CHOL/HDL RATIO 2025-03-09 05: [facility] 5.5 (missing) NATIONAL CHOLESTEROL GUIDELINE [facility] ([facility]) guidelines for classificaton, testing and management of cholesterol levels in adults over 20 years of age. This new classification creates three categories of risk for coronary heart disease, regardless of age or sex, according to total amd LDL cholesterols levels: Based on total cholesterol level Desirable <200 mg/dl Borderline-high 200-239 mg/dl High >=240 mg/dl Based on cholesterol ratio CHD RISK CHOL/HDL RATIO MALE FEMALE 0.5 x Average 3.4 3.3 1.0 x Average 5.0 4.4 2.0 x Average 9.6 7.1 3.0 x Average 13.5 11.0 HEMOGLOBIN A1c% 2025-03-09 05:09 [facility] 5.5 % The [place] [employer] (ADA) has made the following recommendations: Monitoring HbA1c in Diabetic Patients: A1c (NGSP%) Goal <8 Less Stringent Goal <7 General Goal <6.5 More Stringent Goal Diagnosis of Diabetes: A1c (NGSP%) Goal >6.5 Diabetic 5.7-6.4 Pre-Diabetic <5.7 Non-Diabetic NEUTROPHILS # (AUTO) 2025-03-09 05:09 [facility] 7.4 10 3/ul (missing) ANION GAP 2025-03-09 05:09 [facility] 8.0 (missing) (missing) CALCIUM 2025-03-09 05:09 [facility] 8.9 mg/dl As of December 2022 testing method has changed, this may include reference ranges. WHITE BLOOD COUNT 2025-03-09 05:09 [facility] 9.5 x10 3/ul (missing) MEAN CORPUSCULAR VOLUME 2025-03-09 05:09 [facility] 96.7 fl (missing) GLUCOSE 2025-03-09 05:09 [facility] 97 mg/dl As of December 2022 testing method has changed, this may include reference ranges. CHLORIDE 2025-03-09 05:09 [facility] 98 mmol/l As of December 2022 testing method has changed, this may include reference ranges. Result panel 4 NUCLEATED RED BLOOD CELLS AUTO 2025-03-10 05:29 [facility] 0.0 /100wbc (missing) NRBC ABSOLUTE COUNT (AUTO) 2025-03-10 05:29 [facility] 0.00 x10 3/ul (missing) BASOPHILS # (AUTO) 2025-03-10 05:29 [facility] 0.1 10 3/ul (missing) EOSINOPHILS # (AUTO) 2025-03-10 05:29 [facility] 0.1 10 3/ul (missing) MONOCYTES # (AUTO) 2025-03-10 05:29 [facility] 0.5 10 3/ul (missing) CREATININE 2025-03-10 05:29 [facility] 0.7 mg/dl As of December 2022 testing method has changed, this may include reference ranges. LYMPHOCYTES # (AUTO) 2025-03-10 05:29 [facility] 1.7 10 3/ul (missing) MEAN PLATELET VOLUME 2025-03-10 05:29 [facility] 10.2 fl (missing) GFR - MDRD 2025-03-10 05:29 [facility] 126 (doris jaimes) The IDMS-traceable MDRD Study Equation has been validated extensively in and populations between the ages of 18 and 70 with impaired kidney function (eGFR < 60 mL/min/1.73m2) and has shown good performance for patients with all common causes of kidney disease. Although this equation has not been validated for patients older than 70, an MDRD-derived eGFR may still be a useful tool for providers caring for patients older than 70. References: http://www.nkdep.n ih.gov/lab-evaluat ion/gfr/creatinine -stand ardization, last updated August 2011. HGB - HEMOGLOBIN 2025-03-10 05: [facility] 13.4 g /dl (missing) SODIUM 2025-03-10 05:29 [facility] 136 mmol/l (missing) RED CELL DISTRIBUTION WIDTH 2025-03-10 05: [facility] 14.0 % (mi ssing) PLT - PLATELET COUNT 2025-03-10 05:29 [facility] 250 10 3/ul (missing) POTASSIUM 2025-03-10 05: [facility] 3.7 mmol/l As of December 2022 testing method has changed, this may include reference ranges. MEAN CORPUSCULAR HEMOGLOBIN 2025-03-10 05: [facility] 31.8 pg (missing) MEAN CORPUSCULAR HGB CONC 2025-03-10 05:29 [facility] 32.2 g/dl (missing) CARBON DIOXIDE - CO2 2025-03-10 05: [facility] 34 mmol/l As of December 2022 testing method has changed, this may include reference ranges. RED BLOOD COUNT 2025-03-10 05:29 [facility] 4.21 10 6/ul (missing) NEUTROPHILS # (AUTO) 2025-03-10 05:29 [facility] 4.3 10 3/ul (missing) HCT - HEMATOCRIT 2025-03-10 05: [facility] 41.6 % (missing) BUN - BLOOD UREA NITROGEN 2025-03-10 05:29 [facility] 5 mg/dl As of Dec testing method has changed, this may include reference ranges. ANION GAP 2025-03-10 05:29 [facility] 5.0 (missing ) (missing) WHITE BLOOD COUNT 2025-03-10 05: [facility] 6.7 x10 3/ul (missing) GLUCOSE 2025-03-10 05: [facility] 76 mg/dl As of December 2022 testing method has changed, this may include reference ranges. CALCIUM 2025-03-10 05: [facility] 8.9 mg/dl As of December 2022 testing method has changed, this may include reference ranges. CHLORIDE 2025-03-10 05: [facility] 97 mmol/l As of December 2022 testing method has changed, this may include reference ranges. MEAN CORPUSCULAR VOLUME 2025-03-10 05:29 [facility] 98.8 fl (missing) Social History date description facility
== END 2025-03-10 08:45 | disposition home or self-care (01) ==
LOC: MS3 10:17 → ED 10:17 → MS3 14:47
PROVIDERS: ADMIT Physician Assistant Medical; ATTEND Physician Assistant Medical